=== PATIENT | female | born 1995 | race Caucasian/White ===

== ENCOUNTER 2017-03-29 01:14 | Emergency (ER) | payer BC ==
[~2017-03-29] VITALS: Ht 157.5 cm; Wt 49.1 kg
[~2017-03-29 01:14] MED LIST: PRD/1 PO
[2017-03-29 01:16] VITALS: TEMP 36.8; Ht 157.5 cm; Wt 49.1 kg
[2017-03-29] MEDS ORDERED: SODIUM CHLORIDE 0.9% 1000ML 1,000 ML IV STA (01:33)
[2017-03-29] MEDS ORDERED: ONDANSETRON INJ 2 MG/ML 2 ML VIAL IV STA (01:33)
[2017-03-29 01:50] LABS: BASO % 0.1 %; BASO ABS # 0.01 K/uL (0-0.2); HEMATOCRIT 41.3 % (37-47); HEMOGLOBIN 14.3 g/dL (12.0-16.0); IG# 0.04 K/uL (0.00-0.02); LYMPH % 11.3 %; LYMPH ABS # 0.76 K/uL (1.2-3.4); MEAN CELL VOLUME 87.7 fL (80-100); MEAN CORPUSCULAR HEMOGLOBIN 30.4 pg (25-34); MEAN CORPUSCULAR HGB CONC 34.6 g/dl (32-36); MEAN PLATELET VOLUME 10.4 fL (7.4-10.4); MONO % 5.2 %; MONO ABS # 0.35 K/uL (0.11-0.59); NEUT % 82.8 %; NEUT ABS # 5.59 K/uL (1.4-6.5); PLATELET COUNT 244 K/uL (130-400); RED CELL DISTRIBUTION WIDTH CV 12.6 % (11.5-14.5); RED CELL DISTRIBUTION WIDTH SD 40.3 fL (36.4-46.3); WHITE BLOOD COUNT 6.75 K/uL (4.8-10.8)
[2017-03-29] MEDS ORDERED: NORG1TAB19 PO (02:07)
[2017-03-29 02:09] LABS: CALCIUM 9.1 mg/dl (8.5-10.1); CREATININE 0.86 mg/dl (0.60-1.20); POTASSIUM 3.7 mmol/L (3.5-5.1)
[2017-03-29 05:01] VITALS: BP 96/52; PULSE 77; O2SAT 98
--- NOTE | 2017-03-29 08:05 | EMERGENCY ROOM VISIT NOTE ---
History Report prepared by Willi: Beatriz Eng Under the Supervision of: Dr. Bhavna Guzman D.O. First contact with patient: 01:22 Chief Complaint: ALCOHOL OVERDOSE Stated Complaint: ETOH WITH MEDS History of Present Illness The patient is a 21 year old female who presents to the Emergency Room with complaints of an episode of an alcohol overdose occurring prior to arrival. The patient states that she was diagnosed with Influenza A two days ago. She reports that they gave her Prednisone and Zofran although she has only taken Prednisone. She notes that she has also taken Tylenol. She states that tonight she went to a friend's house and had some ETOH to drink. The patient states that she had champagne, beer, and liquor. The patient's boyfriend states that he became worried because she became incoherent quickly and was stumbling a lot. He states that she suddenly started vomiting and appeared to have trouble breathing. The patient complains of body aches. The patient denies abdominal pain. Source of History: patient, spouse/significant other Onset: prior to arrival Position: other (global) Quality: ache Timing: other (episode) Modifying Factors (Relieving): tylenol, other (Prednisone) Associated Symptoms: + SOB, + vomiting, No abdominal pain Review of Systems See HPI for pertinent positives & negatives. A total of 10 systems reviewed and were otherwise negative. Past Medical & Surgical Medical Problems: (1) No Known Active Medical Problems Family History No pertinent family history Social History Smoking Status: Never Smoker Marital Status: in relationship Housing Status: lives with significant other Occupation Status: [employer] student Current/Historical Medications Scheduled Norgestimate-Ethinyl Estradiol (Tri-Linyah), 1 TAB PO DAILYBB Prednisone (Prednisone), PO UD Allergies Coded Allergies: Pineapple (Verified Allergy, Severe, ANAPHYLAXIS, 03/29/17) Physical Exam Vital Signs Date Time Temp Pulse Resp B/P (MAP) Pulse Ox O2 Delivery O2 Flow Rate FiO2 03/29/17 05:01 77 18 96/52 98 03/29/17 03:45 98/49 03/29/17 03:42 98/57 03/29/17 03:39 87 16 107/56 97 Room Air 03/29/17 01:58 72 03/29/17 01:16 36.8 85 20 123/83 99 Room Air Physical Exam HEENT: Head - normocephalic and atraumatic Pupils are equal, round, and reactive to light. Extraocular eye muscles are intact, and sclera are anicteric. Nose - moist nasal mucosa without discharge. Mouth - moist buccal mucosa. Oropharynx is nonerythematous and there is no tonsillar exudate or edema noted. Neck: Supple; no JVD, nuchal rigidity, cervical lymphadenopathy. Heart: Tachycardic rate and regular rhythm. There is a normal S1 and S2 with no murmurs, clicks, or gallops appreciated. Lungs: Clear to auscultation bilaterally with no wheezes, rales, or rhonchi. Abdomen: Soft, completely nontender, nondistended, with good bowel sounds. There are no palpable pulsatile masses or hepatosplenomegaly. There is no guarding, rigidity, or rebound noted. Extremities: No evidence of cyanosis, clubbing, or edema. There are easily palpable peripheral pulses. Skin: warm and dry with good turgor and no rashes. Medical Decision & Procedures Laboratory Results 03/29/17 01:40 Red Blood Count 4.71, Mean Corpuscular Volume 87.7, Mean Corpuscular Hemoglobin 30.4, Mean Corpuscular Hemoglobin Concent 34.6, Mean Platelet Volume 10.4, Neutrophils (%) (Auto) 82.8, Lymphocytes (%) (Auto) 11.3, Monocytes (%) (Auto) 5.2, Eosinophils (%) (Auto) 0.0, Basophils (%) (Auto) 0.1, Neutrophils # (Auto) 5.59, Lymphocytes # (Auto) 0.76, Monocytes # (Auto) 0.35, Eosinophils # (Auto) 0.00, Basophils # (Auto) 0.01 03/29/17 01:40 Test 03/29/17 01:40 White Blood Count 6.75 K/uL (4.8-10.8) Red Blood Count 4.71 M/uL (4.2-5.4) Hemoglobin 14.3 g/dL (12.0-16.0) Hematocrit 41.3 % (37-47) Mean Corpuscular Volume 87.7 fL (80-100) Mean Corpuscular Hemoglobin 30.4 pg (25-34) Mean Corpuscular Hemoglobin Concent 34.6 g/dl (32-36) Platelet Count 244 K/uL (130-400) Mean Platelet Volume 10.4 fL (7.4-10.4) Neutrophils (%) (Auto) 82.8 % Lymphocytes (%) (Auto) 11.3 % Monocytes (%) (Auto) 5.2 % Eosinophils (%) (Auto) 0.0 % Basophils (%) (Auto) 0.1 % Neutrophils # (Auto) 5.59 K/uL (1.4-6.5) Lymphocytes # (Auto) 0.76 K/uL (1.2-3.4) Monocytes # (Auto) 0.35 K/uL (0.11-0.59) Eosinophils # (Auto) 0.00 K/uL (0-0.5) Basophils # (Auto) 0.01 K/uL (0-0.2) RDW Standard Deviation 40.3 fL (36.4-46.3) RDW Coefficient of Variation 12.6 % (11.5-14.5) Immature Granulocyte % (Auto) 0.6 % Immature Granulocyte # (Auto) 0.04 K/uL (0.00-0.02) Anion Gap 10.0 mmol/L (3-11) Est Creatinine Clear Calc Drug Dose 80.9 ml/min Estimated GFR () 112.7 Estimated GFR (Non- 97.3 BUN/Creatinine Ratio 9.2 (10-20) Calcium Level 9.1 mg/dl (8.5-10.1) Ethyl Alcohol mg/dL 227.0 mg/dl (0-3) Laboratory results per my review. Medications Administered Medications (Trade) Dose Ordered Sig/Ranjana Route Start Time Stop Time Status Last Admin Dose Admin Sodium Chloride 1,000 ml @ 999 mls/hr Q1H1M STAT IV 03/29/17 01:33 03/29/17 02:33 DC 03/29/17 01:44 999 MLS/HR Ondansetron HCl (Zofran Inj) 4 mg NOW STAT IV 03/29/17 01:33 03/29/17 01:35 DC 03/29/17 01:44 4 MG Procedure 0133: Ordered Zofran Inj 4 mg IV, NSS 1000 ml @ 999 mls/hr IV. ED Course 0128: Past medical records reviewed. The patient was evaluated in room C6. A complete history and physical exam was performed. An IV lock was initiated and labs were drawn as above. 0133: Ordered Zofran Inj 4 mg IV, NSS 1000 ml @ 999 mls/hr IV. The patient was given some time to sober up. 0440: Upon reevaluation, the patient was fully awake and alert. She feels better. I discussed findings and results with her. She was able to drink clear liquids without difficulty. She verbalized agreement of the treatment plan. The patient was discharged home. Medical Decision The patient is a 21 year old female who presents to the Emergency Room with complaints of an episode of an alcohol overdose occurring prior to arrival. Differential diagnoses include dehydration, influenza, alcohol overdose, sepsis. LABS: No leukocytosis Stable H&H Normal renal function Glucose 127 Alcohol 227 This is a 21-year-old female patient had recently been diagnosed with influenza. I therefore she'll likely, the patient decided to go out to a green party tonight. She became significantly intoxicated. She was vomiting prior to arrival here in the emergency department. Patient was given IV fluids and Zofran and was feeling much better prior to discharge. I encouraged her to quarantine herself until the fever had subsided and avoid consuming alcohol. Medication Reconcilliation Current Medication List: was personally reviewed by me Blood Pressure Screening Patient's blood pressure: Normal blood pressure Blood pressure disposition: Did not require urgent referral Impression Primary Impression: Alcohol overdose Additional Impression: Influenza Scribe Attestation The scribe's documentation has been prepared under my direction and personally reviewed by me in its entirety. I confirm that the note above accurately reflects all work, treatment, procedures, and medical decision making performed by me. Departure Information Dispostion Home / Self-Care Referrals No Doctor, Assigned (PCP) Forms HOME CARE DOCUMENTATION FORM, IMPORTANT VISIT INFORMATION Patient Instructions My [facility] [employer] Additional Instructions Rest. take plenty of clear liquids and a bland diet. Avoid such excessive alcohol use in the future Use tylenol for headache Problem Qualifiers Primary Impression: Alcohol overdose Encounter type: initial encounter Injury intent: accidental or unintentional Qualified Codes: T51.91XA - Toxic effect of unspecified alcohol , accidental (unintentional), initial encounter
== END 2017-03-29 05:05 | disposition home or self-care (01) ==
LOC: C.EDB 01:16 → C.EDA 05:05
DX: T51.0X1A Toxic effect of ethanol, accidental (unintentional), initial encounter (principal); J10.1 Influenza due to other identified influenza virus with other respiratory manifestations